=== PATIENT | male | born 1940 | race Caucasian/White ===

== ENCOUNTER 2016-06-09 14:55 | Emergency (ER) | payer OTHER ==
--- NOTE | 2016-06-09 16:24 | DIAGNOSTIC IMAGING REPORT ---
PROCEDURE: XR CERVICAL SPINE 2 OR 3 VIEW INDICATION: NECK TRAUMA/INJURY TECHNIQUE: Five views. COMPARISON: None. FINDINGS: Osseous structures and disc spaces are normal. No evidence of an acute process or fracture. IMPRESSION: 1. Negative cervical spine.
--- NOTE | 2016-06-09 16:28 | DIAGNOSTIC IMAGING REPORT ---
PROCEDURE: XR CHEST 1 VIEW INDICATION: CHEST PAIN TECHNIQUE: Portable AP view 04:06 p.m. COMPARISON: None. FINDINGS: There is cardiomegaly with pulmonary vascular congestion. No focal infiltrates. IMPRESSION: 1. CHF.
--- NOTE | 2016-06-09 18:28 | ED CLINICAL REPORT ---
Clinical Report - Physicians/Mid Levels [facility] [address] [place] [address] 06/09/2016 14:55 Patient: EVELYN BANKS Time Seen: 15:13; initial patient contact. Arrived- By ambulance. Historian- patient. HISTORY OF PRESENT ILLNESS Chief Complaint: CHEST PAIN. It is described as pressure and it is described as located in the central chest area. No radiation. At its maximum, severity described as moderate. When seen in the E.D., severity described as moderate. This started today and is still present. Onset during rest. The patient has had difficulty breathing and nausea. No vomiting or diaphoresis. Similar symptoms previously: None. Recent medical care: The patient was seen recently by a health care provider (Is in a rehab facility, under Tx for PNA with Levofloxacin. Had an elevated PCT over the weekend. Became hypotensive today and sent via EMS.). REVIEW OF SYSTEMS No fever, chills, calf pain or abdominal pain. He has had a cough, pedal edema and difficulty with urination, and experienced syncope. All systems otherwise negative, except as recorded above. PAST HISTORY nsomnia. Dyspnea. Hypertension. Ventricular Fibrillation. CHF. CAD. Hyperlipidemia. Collapse of vertebra. Prostate Cancer. Pneumonia. Obesity. Reflux. Diabetes Mellitus Type 2. Cirrhosis. COPD - Chronic Obstructive Pulmonary Disease. Medications: Dulcolax Oral 1 tablet, as needed. Bicalutamide Oral (Tablet 50 mg) 2 tablets. Alendronate Sodium Oral 35 mg. Diltiazem HCl ER Oral (Capsule Extended Release 12 Hour 120 mg) 240mg. ASA Oral 81 mg. Atorvastatin Calcium Oral 40 mg, daily. Tylenol Arthritis Pain Oral. Tylenol Oral 325 mg, daily as needed. Ventolin HFA Inhalation (Aerosol Solution 108 (90 Base) mcg/act), as needed. Vitamin D Oral (Capsule 1000 unit) 1 capsule. Losartan Potassium Oral. Losartan Potassium-HCTZ Oral (Tablet 50-12.5 mg) 1 tablet. Meloxicam Oral (Tablet 15 mg) 1 tablet. Metoprolol Tartrate Oral 50 mg, BID. Milk of Magnesia Oral (Suspension 1200 mg/15mL) 1 teaspoon, as needed. Nicotine Transdermal 21 mg/24hr (left side of his arm). OxyCODONE HCl Oral 5 mg, daily as needed. Pantoprazole Sodium Oral 40 mg, daily. Potassium Chloride Oral 20 meq, daily. Senna Oral (Tablet 8.6 mg) 1 tablet, as needed. Tamsulosin HCl Oral 0.4 mg, daily. TraZODone HCl Oral 50 mg, daily. Levaquin Oral 500 mg, daily (initiated 06/08). Allergies: No Known Drug Allergy. SOCIAL HISTORY Former smoker. ADDITIONAL NOTES The nursing notes have been reviewed with agreement regarding the chief complaint, PMH and patient medications and allergies. PHYSICAL EXAM Vital Signs: 06/09/2016 15:05 BP: 114/51. HR: 87. RR: 25. O2 saturation: 95%. Temp: 98.2 F. Pain level now: 8/10. Have been reviewed. Hypotensive. Heart rate normal. Tachypneic. Temperature normal. Oxygen saturation normal. Appearance: Alert. Oriented X3. Patient in mild distress. Eyes: Eyes normal inspection. ENT: Dry mucous membranes present. Neck: No JVD. CVS: Normal heart rate and rhythm. Heart sounds normal. Respiratory: No respiratory distress. Breath sounds normal. Abdomen: Soft and nontender. Bowel sounds normal. No organomegaly. No mass. Skin: Moderate pallor. Extremities: Bilateral 1+ edema of the lower extremities involving both lower legs. Neuro: Oriented X 3. No motor deficit. LABS, X-RAYS, AND EKG EKG: EKG time: (1507). Atrial flutter (ventricular rate 81 variable AV block.). Normal QRS complex. Normal axis. Normal ST and T waves, QT and QTc. Prior EKG unavailable. The study has been interpreted contemporaneously by me. The EKG appears to be a good tracing. I agree with and confirm the computer reading of the EKG. Interpretation time: 1508. Chest X-ray: (There is cardiomegaly with pulmonary vascular congestion. No focal infiltrates.). Views: AP. The X-rays were independently viewed by me, interpreted by the radiologist and discussed with the radiologist. Prior films were not available for comparison. Laboratory Tests: UA-Culture if indicated: (ANN-MARIE: 06/09/2016 16:30) ( MsgRcvd 06/09/2016 16:49) Final results Test Result Flag Units (Reference) URINE COLOR FRANCESCA URINE APPEARANCE CLEAR URINE GLUCOSE NEGATIVE (NEGATIVE) URINE BILIRUBIN ICTOTEST NEGATIVE (NEGATIVE) URINE KETONE NEGATIVE (NEGATIVE) URINE SPECIFIC GRAVITY >= 1.030 (1.010-1.030) URINE PH 5.0 (5.0-8.0) URINE PROTEIN TRACE (NEGATIVE) URINE UROBILINOGEN 0.2 EU/dL (0.2-1.0) URINE NITRITE NEGATIVE (NEGATIVE) URINE BLOOD NEGATIVE (NEGATIVE) URINE LEUK ESTERASE NEGATIVE (NEGATIVE) URINE RBC NONE SEEN rbc/hpf (0-1) URINE WBC RARE wbc/hpf (0-1) URINE EPITHELIAL CELLS RARE EPI/hpf (0-5) URINE BACTERIA NONE SEEN (NONE SEEN) URINE COMMENT CULT NOT INDICATED URINE CULTURES ARE SET-UP BASED ON THE FOLLOWING CRITERIA:POSITIVE NITRITEPOSITIVE LEUKOCYTE ESTERASEGREATER THAN 10 WHITE BLOOD CELLSMODERATE (2+) OR GREATER BACTERIA CBC w Diff: (ANN-MARIE: 06/09/2016 15:15) ( MsgRcvd 06/09/2016 16:36) Final results Test Result Flag Units (Reference) WHITE BLOOD COUNT 8.8 K/uL (4.5-11.5) RED BLOOD COUNT 2.91 L M/uL (4.50-5.90) HEMOGLOBIN 10.5 L gm/dL (13.5-17.5) HEMATOCRIT 31.0 L % (41.0-53.0) MEAN CELL VOLUME 107 H fL (80-100) MEAN CORPUSCULAR HGB 36 H pg (26-34) MEAN CORPUSCULAR HGB CONC 34 g/dL (31-37) RED CELL DISTRIBUTION WIDTH 17.3 H % (11.6-14.8) PLATELET COUNT 193 K/uL (150-400) POLY % 61 % (50-75) BAND % 16 H % (0-8) LYMPH 10 L % (25-40) MONO 13 % (3-14) EOSINOPHIL % 0 % (0-4) BASOPHIL % 0 % (0-2) METAMYELOCYTE % 0 % (0-1) MYELOCYTE 0 % (0-1) OTHER CELL TYPE 0 ANISOCYTOSIS 1+ MACROCYTOSIS 1+ [id number]: (ANN-MARIE: 06/09/2016 15:15) ( [facility] 06/09/2016 15:44) Final results Test Result Flag Units (Reference) D-DIMER QUANTITATIVE 2.98 H ug/mLFEU (0.27-0.52) The primary value of this quantitative assay relates toits negative predictive value (i.e. exclusion) of pulmonaryembolism/deep vein thrombosis/DIC.Elevated levels of d-dimer may also occur with:, age, cancer, inflammation, liver disease,post-op, infection, hematoma, coronary disease, peripheralarteriopathy, bleeding disorders and thrombolytic treatment.Results should be correlated with other clinical andradiological data.Testing Methodology: Latex Immunoassay BMP: (ANN-MARIE: 06/09/2016 17:00) ( [facility] 06/09/2016 17:24) Final results Test Result Flag Units (Reference) GLUCOSE 188 H mg/dL (70-110) BUN 57 H mg/dL (7-18) CREATININE 3.8 H mg/dL (0.6-1.3) Estimated GFR 16.68 mL/min Estimated GFR- 20.21 mL/min Note: Persistent reduction over 3 months in eGFR<60 mL/min/1.73 m2 defines CKD. Patients with eGFR values>=60 mL/min/1.73 m2 may also have CKD if evidence ofpersistent proteinuria. Additional information may be foundat www.[email or web address].org. SODIUM 127 L mmol/L (136-145) POTASSIUM 5.7 H mmol/L (3.5-5.1) CHLORIDE 98 mmol/L (98-107) CARBON DIOXIDE 17 L mmol/L (21-32) CALCIUM 8.1 L mg/dL (8.5-10.1) BNP: (ANN-MARIE: 06/09/2016 15:15) ( [facility] 06/09/2016 16:00) Final results Test Result Flag Units (Reference) B-TYPE NATRIURETIC PEPTIDE 192 H pg/ml (5-100) [id number]: (ANN-MARIE: 06/09/2016 15:15) ( MsgRcvd 06/09/2016 16:10) Final results Test Result Flag Units (Reference) LACTIC ACID SEPSIS PROTOCOL 2.8 H mmol/L (0.4-2.0) [id number]: (ANN-MARIE: 06/09/2016 15:15) ( MsgRcvd 06/09/2016 16:08) Final results Test Result Flag Units (Reference) PROCALCITONIN 3.8 H ng/mL (0-0.5) PCT Concentration: Interpretation : Risk/option for action PCT <=0.5 ng/mL : Systemic : Low risk forinfection(sepsis): progression to severeis not likely. : systemic infection.Local bacterial : CAUTION-PCT levelsinfection is : below 0.5 ng/mL do notpossible. : exclude an infection,because localizedinfections (withoutsystemic signs) may beassociated with suchlow levels. If PCT ismeasured very earlyafter a bacterialchallenge (usually <6hours), these valuesmay still be low. Inthis case PCT shouldbe re-assessed 6-24hours later. PCT >0.5 and : Systemic infection: Moderate risk for<= 2 ng/mL : (sepsis) is : progression to severepossible, but : systemic infection.other conditions : The patient should beare known to : closely monitoredelevate PCT. : both clinically andby re-assessing PCTwithin 6-24 hours. PCT > 2 ng/mL : Systemic infection: High risk for(sepsis) is likely: progression to severeunless other : systemic infection.causes are known. : PCT >= 10 ng/mL : Important systemic: High likelihood ofinflammatory : severe sepsis orresponse, almost : septic shock.exclusively due to:severe bacterial :sepsis or septic :shock. : CHEM 13 PANEL: (ANN-MARIE: 06/09/2016 15:15) ( MsgRcvd 06/09/2016 16:11) Final results Test Result Flag Units (Reference) GLUCOSE 239 H mg/dL (70-110) BUN 57 H mg/dL (7-18) CREATININE 3.9 H mg/dL (0.6-1.3) Estimated GFR 16.19 mL/min Estimated GFR- 19.62 mL/min Note: Persistent reduction over 3 months in eGFR<60 mL/min/1.73 m2 defines CKD. Patients with eGFR values>=60 mL/min/1.73 m2 may also have CKD if evidence ofpersistent proteinuria. Additional information may be foundat www.[email or web address].org. SODIUM 126 L mmol/L (136-145) POTASSIUM 6.3 H mmol/L (3.5-5.1) Slightly hemolyzed specimen CHLORIDE 96 L mmol/L (98-107) CARBON DIOXIDE 18 L mmol/L (21-32) CALCIUM 8.2 L mg/dL (8.5-10.1) TOTAL PROTEIN 5.2 L g/dL (6.4-8.2) ALBUMIN 2.1 L g/dL (3.3-5.0) BILIRUBIN, TOTAL 0.6 mg/dL (0.0-1.0) ALKALINE PHOSPHATASE 43 L U/L (46-116) AST (SGOT) 22 U/L (15-37) ALT (SGPT) 23 U/L (12-78) MAGNESIUM 1.8 mg/dL (1.8-2.4) CPK 69 U/L (24-260) TROPONIN I <0.05 ng/mL (0.00-1.5) TROPONIN REFERENCE RANGE:<0.1 NEGATIVE0.1-1.5 INDETERMINANT>1.5 POSITIVE . PROGRESS AND PROCEDURES Critical care performed (80 minutes). Time includes: direct patient care, patient reassessment, coordination of patient care, interpretation of data (laboratory data, pulse oximetry and chest xrays), review of patient's medical records, medical consultation and documentation of patient care. The patient required critical care due to the acute impairment of vital organ systems (cardiovascular, respiratory and renal) and a high probability of imminent deterioration. Multiple urgent interventions were required to prevent sudden deterioration. Discussed case with hospitalist, (call returned 18:22 Dr. Shah Hospitalist at [facility], will accept pt, direct admit to ICU.). Disposition: Benefits, risks and alternatives to transfer explained to patient. Transferred to [facility]. Condition: stable. CLINICAL IMPRESSION Bacterial pneumonia with hypoxemia and sepsis. Empiric antibiotics given in the ED. Sepsis with shock and acute renal failure. 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 (Electronically signed by Denzel West Dr. 06/09/2016 19:29)
--- NOTE | 2016-06-09 18:28 | ED ORDER SUMMARY ---
..... Patient: EVELYN BANKS OrderSheet [facility] VisitID: [id number] [place] [address] 75y, M Registration Date/Time: 06/09/2016 ORDER SHEET Weight: 104.3 kg (stated) Allergies: No Known Drug Allergy GENERAL ORDERS: Chest 1V Urgent (15:14 06/09/2016 Levy Barrios) (Ack 15:21 Huber) (15:56 EHassan R.N.) Blood Culture (Yes) (Levofloxacin) Urgent (15:14 06/09/2016 Levy Barrios) (Ack 15:21 Huber) (15:24 EHassan R.N.) UA-Culture if indicated Urgent (15:18 06/09/2016 Levy Barrios) (Ack 15:21 Huber) (16:45 MWinterer R.N.) Cardiac Panel Stat (15:18 06/09/2016 Levy Barrios) (Ack 15:21 Huber) (15:24 EHassan R.N.) BNP Urgent (15:18 06/09/2016 Levy Barrios) (Ack 15:21 Huber) (15:24 EHassan R.N.) D-Dimer Urgent (15:18 06/09/2016 Levy Barrios) (Ack 15:21 Huber) (15:24 EHassan R.N.) Lactic Acid for Sepsis Protocol Urgent (15:18 06/09/2016 Levy Barrios) (Ack 15:21 Huber) (15:24 EHassan R.N.) PCT (Procalcitonin) Urgent (15:18 06/09/2016 Levy Barrios) (Ack 15:21 Huber) (15:24 EHassan R.N.) Cervical Spine 2 or 3V Urgent (15:29 06/09/2016 Levy Barrios) (Ack 15:37 Huber) (15:56 EHassan R.N.) BMP Urgent (16:20 06/09/2016 Levy Barrios) (Ack 16:30 Huber) (17:04 EHassan R.N.) MEDICATION ORDERS: Levophed Drip IV : 0.1-0.5 mcg/kg/min (HIGH ALERT MEDICATION, NOW) (Titrate to a MAP of 70) (19:11 06/09/2016 Levy Barrios) (20:35 Katie R.N.) IV FLUIDS: IV NS : initial bolus none -, then 1000 mL/hr for X1 (NOW) (15:13 06/09/2016 Levy Barrios) (15:25 Katie R.N.) Zosyn IV 2.25 gm/50mL (NOW) (18:11 06/09/2016 Levy Barrios) (19:06 Katie R.N.) Vancomycin IV 1.5 gm/500 mL (NOW) (18:14 06/09/2016 Levy Barrios) (19:06 Katie R.N.) Morphine IV 4 mg (HIGH ALERT MEDICATION, NOW) (18:15 06/09/2016 Levy Barrios) (Hold 19:07 Katie R.N.) (19:55 Katie R.N.) ORDER SHEET NOTES: [Electronically signed by Denzel West Dr. (19:29 06/09/2016)] [Electronically signed by Susu Hawley R.N. (22:20 06/09/2016)] [Electronically locked/signed by Susu Hawley R.N. (22:20 06/09/2016)]
--- NOTE | 2016-06-09 18:28 | ED ORDER SUMMARY ---
..... Patient: EVELYN BANKS OrderSheet [facility] VisitID: [id number] [place] [address] 75y, M Registration Date/Time: 06/09/2016 ORDER SHEET Weight: 104.3 kg (stated) Allergies: No Known Drug Allergy GENERAL ORDERS: Chest 1V Urgent (15:14 06/09/2016 Levy Barrios) (Ack 15:21 Huber) (15:56 EHassan R.N.) Blood Culture (Yes) (Levofloxacin) Urgent (15:14 06/09/2016 Levy Barrios) (Ack 15:21 Huber) (15:24 EHassan R.N.) UA-Culture if indicated Urgent (15:18 06/09/2016 Levy Barrios) (Ack 15:21 Huber) (16:45 MWinterer R.N.) Cardiac Panel Stat (15:18 06/09/2016 Levy Barrios) (Ack 15:21 Huber) (15:24 EHassan R.N.) BNP Urgent (15:18 06/09/2016 Levy Barrios) (Ack 15:21 Huber) (15:24 EHassan R.N.) D-Dimer Urgent (15:18 06/09/2016 Levy Barrios) (Ack 15:21 Huber) (15:24 EHassan R.N.) Lactic Acid for Sepsis Protocol Urgent (15:18 06/09/2016 Levy Barrios) (Ack 15:21 Huber) (15:24 EHassan R.N.) PCT (Procalcitonin) Urgent (15:18 06/09/2016 Levy Barrios) (Ack 15:21 Huber) (15:24 EHassan R.N.) Cervical Spine 2 or 3V Urgent (15:29 06/09/2016 Levy Barrios) (Ack 15:37 Huber) (15:56 EHassan R.N.) BMP Urgent (16:20 06/09/2016 Levy Barrios) (Ack 16:30 Huber) (17:04 EHassan R.N.) MEDICATION ORDERS: Levophed Drip IV : 0.1-0.5 mcg/kg/min (HIGH ALERT MEDICATION, NOW) (Titrate to a MAP of 70) (19:11 06/09/2016 Levy Barrios) (20:35 Katie R.N.) IV FLUIDS: IV NS : initial bolus none -, then 1000 mL/hr for X1 (NOW) (15:13 06/09/2016 Levy Barrios) (15:25 Katie R.N.) Zosyn IV 2.25 gm/50mL (NOW) (18:11 06/09/2016 Levy Barrios) (19:06 Katie R.N.) Vancomycin IV 1.5 gm/500 mL (NOW) (18:14 06/09/2016 Levy Barrios) (19:06 Katie R.N.) Morphine IV 4 mg (HIGH ALERT MEDICATION, NOW) (18:15 06/09/2016 Levy Barrios) (Hold 19:07 Katie R.N.) (19:55 Katie R.N.) ORDER SHEET NOTES: [Electronically signed by Denzel West Dr. (19:29 06/09/2016)] [Electronically signed by Susu Hawley R.N. (22:20 06/09/2016)] [Electronically locked/signed by Susu Hawley R.N. (22:20 06/09/2016)]
--- NOTE | 2016-06-09 18:28 | ED NURSING NOTES ---
Clinical Report - Nurses [place] [address] [place] [address] 06/09/2016 14:55 Patient: VEELYN BANKS TRIAGE Triage time 1503 PM. Acuity: LEVEL 2. Chief Complaint: FEVER, CHILLS, FAINTING, WEAKNESS, DIARRHEA, NECK PAIN and BACK PAIN. Alert. No acute distress. SEPSIS SCREEN: Sepsis Screen. Negative (no infection suspected/documented). TYRONE COMA SCORE: [place] Coma Scale: 15- eyes open spontaneously (4); best verbal response- oriented x 4 (5); best motor response- obeys commands (6). --15:50 Susu Hawley R.N. 15:05 06/09/16. BP: 114/51. HR: 87. RR: 25. O2 saturation: 95% on nasal cannula at 4 liters/minute. Temp: 98.2 F. Pain level now: 11/06. --15:50 Susu Hawley R.N. Weight: 104.3 kg stated. Height/Length: 72 inches Per Patient. BMI: 31.2. --15:11 Susu Hawley R.N. Medications Levaquin Oral 500 mg, daily (initiated 06/08). --15:23 Susu Hawley R.N. TraZODone HCl Oral 50 mg, daily. --15:35 Susu Hawley R.N. Tamsulosin HCl Oral 0.4 mg, daily. --15:35 Susu Hawley R.N. Senna Oral (Tablet 8.6 mg) 1 tablet, as needed. --15:36 Susu Hawley R.N. Potassium Chloride Oral 20 meq, daily. --15:37 Susu Hawley R.N. Pantoprazole Sodium Oral 40 mg, daily. --15:38 Suus Hawley R.N. OxyCODONE HCl Oral 5 mg, daily as needed. --15:38 Susu Hawley R.N. Nicotine Transdermal 21 mg/24hr (left side of his arm). --15:38 Susu Hawley R.N. Milk of Magnesia Oral (Suspension 1200 mg/15mL) 1 teaspoon, as needed. --15:39 Susu Hawley R.N. Metoprolol Tartrate Oral 50 mg, BID. --15:39 Susu Hawley R.N. Meloxicam Oral (Tablet 15 mg) 1 tablet. --15:39 Susu Hawley R.N. Losartan Potassium Oral. Losartan Potassium-HCTZ Oral (Tablet 50-12.5 mg) 1 tablet. --15:40 Susu Hawley R.N. Vitamin D Oral (Capsule 1000 unit) 1 capsule. --15:41 Susu Hawley R.N. Ventolin HFA Inhalation (Aerosol Solution 108 (90 Base) mcg/act), as needed. --15:42 Susu Hawley R.N. Tylenol Arthritis Pain Oral. Tylenol Oral 325 mg, daily as needed. --15:42 Susu Hawley R.N. Atorvastatin Calcium Oral 40 mg, daily. --15:42 Susu Hawley R.N. ASA Oral 81 mg. --15:42 Susu Hawley R.N. Diltiazem HCl ER Oral (Capsule Extended Release 12 Hour 120 mg) 240mg. --15:43 Susu Hawley R.N. Alendronate Sodium Oral 35 mg. --15:43 Susu Hawley R.N. Bicalutamide Oral (Tablet 50 mg) 2 tablets. --15:44 Susu Hawley R.N. Dulcolax Oral 1 tablet, as needed. --15:44 Susu Hawley R.N. The following entry was struck and corrected by Susu Hawley R.N., 15:41 (06/09/16) Reason for correction - other(correction). <<STRICKEN ENTRY-- Levaquin Oral. --15:23 Susu Hawlye R.N. --END STRIKE>>. Medication/allergy information source: the patient. --15:50 Susu Hawley R.N. Allergies No Known Drug Allergy. --18:37 Susu Hawley R.N. History Arrived by EMS. Historian: patient. Primary physician (Dr. Hall). ( Pt arrived via EMS from skilled nursing, as per report pt had a syncope episode while getting to the commode. As per pt, has been feeling weak/SOB, diagnosed with pneumonia on levaquin. Denies CP. On a board -and C-gladis). This started today. He has had fever, weakness, a cough and difficulty breathing. Denies muscle aches. No skin rash. Treatment RIBBON TIER: None. EMS treatment RIBBON TIER verbally communicated. PAST MEDICAL HX: Immunizations: up-to-date. SOCIAL HX: Former smoker, end date 05/23/2016. Heavy alcohol use; consumes beer occasionally. No drug use. No infectious disease exposure. ABUSE ASSESSMENT: No report of abuse. SELF HARM ASSESSMENT: A self harm assessment was performed. The patient answered "no" to the question "Do you have thoughts of harming or killing yourself?" and "Have you recently had thoughts about harming or killing others?". FALL RISK ASSESSMENT: Fall risk assessment completed. Risk factors identified include patient age greater than 65 years and history of fall. --15:50 Susu Hawley R.N. PROBLEMS: Insomnia. Dyspnea. Hypertension. Ventricular Fibrillation. CHF. CAD. Hyperlipidemia. Collapse of vertebra. Prostate Cancer. Pneumonia. Obesity. Reflux. Diabetes Mellitus Type 2. Cirrhosis. COPD - Chronic Obstructive Pulmonary Disease. --15:50 Susu Hawley R.N. ADDITIONAL SURGERIES: Cyst removal of tail bone. Emergency Appendectomy. Fracture Repair. Skin cancer removal. Tonsillectomy & Adenoidectomy. --18:38 Susu Hawley R.N. Interventions ID band on patient. --15:50 Susu Hawley R.N. PHYSICAL ASSESSMENT To room via stretcher. GENERAL / NEURO / PSYCH: Alert. Oriented X 4. Appears in no acute distress. Appears in pain. HEENT: No facial asymmetry noted. Mucous membranes are pink. RESPIRATORY: Respirations not labored. Chest nontender. Decreased breath sounds in the bases bilaterally; decreased breath sounds in the right lung base anteriorly. Breath sounds within normal limits. CVS: Cardiac rhythm: atrial flutter. Pulses within normal limits. GI / : Abdomen soft and nontender and normal bowel sounds. SKIN: Skin intact. Skin is warm and dry. Poor skin turgor. Medium area of erythema to the abdomen and area of the genitalia. --15:52 Susu Hawley R.N. NURSING PROGRESS NOTES 15:06/09/2016 Site #1 accessed indwelling PIV line in the right antecubital space using a 18g needle. --15:25 Susu Hawley R.N. 15:06/09/2016 Site #2 accessed indwelling PIV line in the left forearm using a 20g needle; 1 attempt. --15:25 Susu Hawley R.N. 15:06/09/2016 Started bag #1 1000 mL IV Fluids IV NS (Saline); at 1000 mL/hr over 1 hour(s) via site #2 via dial-a-flow. Allergies verified and confirmed 5 rights. IV patency established. IV site checked: no pain, redness, or swelling. IV flushed thoroughly pre- and post-medication administration. --15:25 Susu Hawley R.N. The initial plan of care for this patient has been created This plan of care was discussed with the patient. Oxygen administered by nasal cannula at 2 liters. lead application architect, pulse oximeter, end tidal CO2 monitor and NIBP monitor placed on patient. Patient ID band checked for patient name, birthdate and medical record number: patient confirmed. Blood samples drawn from the right hand with Vacutainer 22g by nurse per protocol ; labeled in presence of the patient and sent to lab: rainbow set: blood culture (1st set). Patient gowned. Warming measures: blanket applied. Reassurance given. Two patient identifiers checked. Call light placed in reach. Side rails up x 2. Bed placed in lowest position. Brakes of bed on. --15:53 Susu Hawley R.N. 15:15 06/09/16. BP: 95/50 (regular adult cuff) taken on the left arm, via an automated monitor, while lying. HR: 75. RR: 22. O2 saturation: 97% on nasal cannula at 2 liters/minute. Pain level now: 8/10. --15:54 Susu Hawley R.N. late entry - 15:15 PM. Cardiac rhythm: atrial flutter. --15:54 Susu Hawley R.N. Patient transported to radiology by stretcher with O2. --15:54 Susu Hawley R.N. Cardiac rhythm: atrial flutter. lead application architect, pulse oximeter and NIBP monitor placed on patient. Reassurance given. Reassessment after fluids administered. ( Pt complaining of "his normal back pain" BP at 93/54 MD West aware, infusing bolus, pt understands that his BP is low at this moment unable to tx pain right now). RESPIRATORY: Denies difficulty breathing. CVS: Denies chest pain. Patient returned from radiology. (1614 PM). Call light placed in reach. Side rails up x 2. Bed placed in lowest position. Brakes of bed on. --16:16 Susu Hawley R.N. 16:14 06/09/16. BP: 93/54 (regular adult cuff) taken on the left arm, via an automated monitor, while lying. HR: 76 (irregular). RR: 22. O2 saturation: 95% on nasal cannula at 2 liters/minute. Pain level now: 810. --16:16 Susu Hawley R.N. 16:30 06/09/16. BP: 85/40 (regular adult cuff) taken on the left arm, via an automated monitor, while lying. HR: 68 (irregular). RR: 22. O2 saturation: 97%. Pain level now: 8/10. --16:41 Susu Hawley R.N. Cardiac rhythm: atrial flutter. Reassurance given. --16:41 Susu Hawley R.N. 14 fr rothman catheter placed. Reason for indwelling catheter: critical need to monitor intake and output. During procedure hand hygiene observed and sterile equipment and aseptic technique used. Return of abhi-colored clear urine; attached to urimeter and secured with tape. He tolerated procedure well. --16:49 Susu Hawley R.N. 17:30 06/09/16. BP: 103/53. HR: 91. RR: 20. O2 saturation: 96% on nasal cannula at 4 liters/minute. --17:31 Chloé Bazzi R.N. 17:31 06/09/2016 IV Fluids IV NS Discontinued: bag #1 infused. Total amount infused: 1000 mL. IV patency established. IV site checked: no pain, redness, or swelling. IV flushed thoroughly. --17:31 Chloé Bazzi R.N. 17:35 06/09/2016 Started bag #2 1000 mL IV Fluids IV NS (Saline); at 999 mL/hr over 1 hour(s) via site #2 via IV pump. Allergies verified and confirmed 5 rights. IV patency established. IV site checked: no pain, redness, or swelling. IV flushed thoroughly pre- and post-medication administration. --17:35 Chloé Bazzi R.N. lead application architect, pulse oximeter and NIBP monitor placed on patient. Patient hygiene performed. Patient is incontinent of stool. Stool described as loose. Changed patient linens. Reassurance given. Lights dimmed. Reassessment after oxygen and fluids administered. Overall patient status is the same- he states feels the same. CVS: Denies chest pain. --18:01 Susu Hawley R.N. 17:53 06/09/16. BP: 106/56 (regular adult cuff) taken on the left arm, via an automated monitor, while lying. HR: 87. RR: 18. O2 saturation: 97% on nasal cannula at 3 liters/minute. Temp: 97.6 F (oral). Pain level now: 8/10. --18:01 Susu Hawley R.N. ( BMP repeated K still at 5.7, MD West aware, IV fluids infusing BP up to 106/56, pt still complaining of back pain,). --18:11 Susu Hawley R.N. 19:00 06/09/2016 IV Fluids IV NS Discontinued: bag #2 infused upon discharge. Total amount infused: 1000 mL. IV patency established. IV site checked: no pain, redness, or swelling. IV flushed thoroughly. --20:34 Susu Hawley R.N. 19:06 06/09/2016 Started 2.25 gm of Zosyn (Piperacillin Sod-Tazobactam So) IVPB in bag #1 50 mL; at 50 mL/hr over 30 minute(s) via site #1 via IV pump. Allergies verified and confirmed 5 rights. IV patency established. IV site checked: no pain, redness, or swelling. IV flushed thoroughly pre- and post-medication administration. Completed per protocol. --19:06 Susu Hawley R.N. 19:06 06/09/2016 Started 1.5 gm of Vancomycin IVPB in bag #1 500 mL; at 500 mL/hr over 2 hour(s) via site #2 via IV pump. Allergies verified and confirmed 5 rights. IV patency established. IV site checked: no pain, redness, or swelling. IV flushed thoroughly pre- and post-medication administration. --19:06 Susu Hawley R.N. 19:09 06/09/16. BP: 79/48. HR: 70. RR: 16. O2 saturation: 97% on nasal cannula at 2 liters/minute. Pain level now: 810. --19:15 Susu Hawley R.N. Oxygen administered by nasal cannula at 3 liters. lead application architect, pulse oximeter and NIBP monitor placed on patient. Patient hygiene performed. Patient is incontinent of stool. Stool described as loose. Reassurance given. Lights dimmed. Reassessment after oxygen and fluids administered. He has had no adverse reaction. Overall patient status is the same- he states feels the same. ( BP at 74/49 MD West aware, Antibiotics initiated as ordered, Levophed ordered, pt asymtomatic). RESPIRATORY: Denies difficulty breathing. CVS: Denies chest pain. Cardiac rhythm: atrial flutter. --19:15 Susu Hawley R.N. 19:39 06/09/2016 Site #3 started via IV in the right forearm with an 20g angiocath; one attempt. Saline lock flushed. --19:55 Susu Hawley R.N. 19:40 06/09/2016 Started 4 mcg of Levophed (Norepinephrine Bitartrate) Drip IV in bag #1 250 mL; at 4 mcg/kg/min over 5 hour(s) via site #1 via IV pump. Allergies verified and confirmed 5 rights. IV patency established. IV site checked: no pain, redness, or swelling. IV flushed thoroughly pre- and post-medication administration. Completed per protocol. --20:36 Susu Hawley R.N. 19:45 06/09/2016 Zosyn IVPB Discontinued: bag #1 completed upon discharge. Total amount infused: 50 mL. IV patency established. IV site checked: no pain, redness, or swelling. IV flushed thoroughly. --20:34 Susu Hawley R.N. 19:50 06/09/2016 Morphine IVP 4 mg given over 2 minute(s) via site #3. --19:55 Susu Hawley R.N. 20:00 06/09/2016 Morphine IVP Response: no adverse reaction symptoms have improved the patient feels the same. --20:36 Susu Hawley R.N. late entry - 19:15. Cardiac rhythm: atrial flutter. lead application architect, pulse oximeter and NIBP monitor placed on patient. Reassurance given. Reassessment after oxygen and fluids administered. He is calm. ( Fluids infusing, pt awaiting on tranport, will initiate Levo once received from pharmacy). Two patient identifiers checked. Call light placed in reach. --20:39 Susu Hawley R.N. 19:15 06/09/16. BP: 85/45. HR: 72. RR: 20. O2 saturation: 97% on nasal cannula at 3 liters/minute. Pain level now: 11/06. --20:39 Susu Hawley R.N. late entry - 19:30 PM. Cardiac rhythm: atrial flutter. Oxygen administered by nasal cannula at 3 liters. Monitoring of patient in place. Reassurance given. --20:40 Susu Hawley R.N. 19:30 06/09/16. BP: 99/54. HR: 72. RR: 20 (regular and unlabored). O2 saturation: 96% on nasal cannula at 3 liters/minute. Temp: 97.6 F (oral). Pain level now: 11/06. --20:40 Susu Hawley R.N. late entry - 19:45 PM. Cardiac rhythm: atrial flutter. The patient is calm. Overall patient status is improved- he states feels the same. ( Ambulance at bedside, levo initiated, pt tolerating well, morphine given and ok by Dr. West). RESPIRATORY: No respiratory distress present. CVS: Denies chest pain. SKIN: Skin is warm and dry. Skin color within normal limits. --20:43 Susu Hawley R.N. 19:45 06/09/16. BP: 104/54. HR: 72. RR: 18. O2 saturation: 97% on nasal cannula at 3 liters/minute. Pain level now: 11/06. --20:43 Susu Hawley R.N. DISPOSITION / DISCHARGE 20:00 06/09/2016 Site #1 reassessed; patent, infusing well and no signs of infection or infiltration. Good blood return present. --20:29 Susu Hawley R.N. 20:00 06/09/2016 Site #2 reassessed; patent, infusing well and no signs of infection or infiltration. Good blood return present. --20:29 Susu Hawley R.N. 20:00 06/09/2016 Site #3 reassessed; patent, infusing well and no signs of infection or infiltration. Good blood return present. Converted to saline lock. Flushed with 10 mL saline. --20:30 Susu Hawley R.N. Cardiac rhythm: atrial flutter. Departure time: 2003 PM. Condition at departure: improved, stable and critical. The goals identified in the patient's plan of care were met. Transferred to [facility] (1999 PM). Transported via ambulance by nurse with monitor, IV and O2. Report was given to a nurse via a phone call. Report included patient's care, treatment, medications, reviewed medication reconcilliation, and condition (including any recent changes or anticipated changes). All questions were answered. Report was acknowledged and care was transferred. (ESTER Mujica). ( Pt transferred via ambulance to [facility], report given to ESTER Dominguez (transport), pt initiated on Levophed to maintain MAP > 65-70, VSS, IV sites intact, Vanco infusing as ordered, NS and Levo.). Patient's personal items include: shirt, pants, socks, shoes, glasses and cell phone, phone lead refiner; items were placed in belongings bag and transported with the patient. TYRONE COMA SCORE: [place] Coma Scale: 15- eyes open spontaneously (4); best verbal response- oriented x 4 (5); best motor response- obeys commands (6). --20:33 Susu Hawley R.N. 20:00 06/09/16. BP: 114/56. HR: 74. RR: 20. O2 saturation: 97% on nasal cannula at 3 liters/minute. Temp: 97.6 F (oral). Pain level now: 11/06. --20:33 Susu Hawley R.N. Locked/Released at 06/09/2016 22:20 by Susu Hawley R.N.
--- NOTE | 2016-06-09 22:20 | ED MAR SUMMARY ---
..... Medication Administration Record [facility] [address] [place] [address] Patient: EVELYN BANKS Visit ID: [id number] 75y, M Weight: 104.3 kg Height/Length: 72 in BMI: 31.2 ALLERGIES: No Known Drug Allergy Start 15:25 06/09/2016 Susu Hawley R.N., Stop 17:31 06/09/2016 Chloé Bazzi R.N. Medication Administered: IV NS (SALINE), Dose: IV Fluids over 1 hour(s), Rate: 1000 mL/hr, Dispensed: 1000 mL bag, Site: #2 left forearm. Medication Ordered: IV NS : initial bolus none -, then 1000 mL/hr for X1 (NOW). Start 17:35 06/09/2016 Chloé Bazzi R.N., Stop 19:00 06/09/2016 Susu Hawley R.N. Medication Administered: IV NS (SALINE), Dose: IV Fluids over 1 hour(s), Rate: 999 mL/hr, Dispensed: 1000 mL bag, Site: #2 left forearm. Medication Ordered: IV NS : initial bolus none -, then 1000 mL/hr for X1 (NOW). Start 19:06 06/09/2016 Susu Hawley R.N., Stop 19:45 06/09/2016 Susu Hawley R.N. Medication Administered: ZOSYN [IVPB] (PIPERACILLIN SOD-TAZOBACTAM SO), Dose: 2.25 gm IVPB over 30 minute(s), Rate: 50 mL/hr, Dispensed: 50 mL bag, Site: #1 right AC. Medication Ordered: Zosyn IV 2.25 gm/50mL (NOW). Start 19:06 06/09/2016 Susu Hawley R.N. Medication Administered: VANCOMYCIN [IVPB], Dose: 1.5 gm IVPB over 2 hour(s), Rate: 500 mL/hr, Dispensed: 500 mL bag, Site: #2 left forearm. Medication Ordered: Vancomycin IV 1.5 gm/500 mL (NOW). Start 19:40 06/09/2016 Susu Hawley R.N. Medication Administered: LEVOPHED [IV DRIP] (NOREPINEPHRINE BITARTRATE), Dose: 4 mcg Drip IV over 5 hour(s), Rate: 4 mcg/kg/min, Dispensed: 250 mL bag, Site: #1 right AC. Medication Ordered: Levophed Drip IV : 0.1-0.5 mcg/kg/min (HIGH ALERT MEDICATION, NOW) (Titrate to a MAP of 70). Given 19:50 06/09/2016 Susu Hawley, REdwardN. Medication Administered: MORPHINE [IVP], Dose: 4 mg IVP over 2 minute(s), Site: #3 right forearm. Medication Ordered: Morphine IV 4 mg (HIGH ALERT MEDICATION, NOW).
--- NOTE | 2016-06-09 22:20 | ED MED RECONCILIATION SUMMARY ---
Patient: EVELYN BANKS Medication Reconciliation Report [facility] VisitID: [id number] [place] [address] 75y, M Registration Date/Time: 06/09/2016 Weight: 104.3 kg Height/Length: 72 in. BMI: 31.2 ALLERGIES: No Known Drug Allergy The patient's Home Medications are listed below: THE FOLLOWING MEDICATIONS NEED TO BE RECONCILED: Alendronate Sodium Oral 35 mg ASA Oral 81 mg Atorvastatin Calcium Oral 40 mg, daily Bicalutamide Oral (50 mg) 2 tablets Diltiazem HCl ER Oral (120 mg) 240mg Dulcolax Oral 1 tablet Levaquin Oral 500 mg, daily, initiated 06/08 Losartan Potassium Oral Losartan Potassium-HCTZ Oral (50-12.5 mg) 1 tablet Meloxicam Oral (15 mg) 1 tablet Metoprolol Tartrate Oral 50 mg, BID Milk of Magnesia Oral (1200 mg/15mL) 1 teaspoon Nicotine Transdermal 21 mg/24hr, left side of his arm OxyCODONE HCl Oral 5 mg, daily Pantoprazole Sodium Oral 40 mg, daily Potassium Chloride Oral 20 meq, daily Senna Oral (8.6 mg) 1 tablet Tamsulosin HCl Oral 0.4 mg, daily TraZODone HCl Oral 50 mg, daily Tylenol Arthritis Pain Oral Tylenol Oral 325 mg, daily Ventolin HFA Inhalation (108 (90 Base) mcg/act) Vitamin D Oral (1000 unit) 1 capsule The source(s) of the original Home Medication information: patient The following Medications were given to the patient in the Emergency Department: IV NS IV Fluids bolus 0, then 1000 mL/hr, administered: 06/09/2016 3:25:00 PM IV NS IV Fluids bolus 0, then 999 mL/hr, administered: 06/09/2016 5:35:00 PM Zosyn [IVPB] IVPB bolus 0, then 2.25 gm 50 mL/hr, administered: 06/09/2016 7:06:00 PM Vancomycin [IVPB] IVPB bolus 0, then 1.5 gm 500 mL/hr, administered: 06/09/2016 7:06:00 PM Morphine [IVP] IVP 4 mg, administered: 06/09/2016 7:50:00 PM Levophed [IV DRIP] Drip IV bolus 0, then 4 mcg 4 mcg/kg/min, administered: 06/09/2016 7:40:00 PM The following Medications were prescribed to the patient: None.
--- NOTE | 2016-06-09 22:20 | ED DISCHARGE INSTRUCTIONS ---
Patient: EVELYN BANKS General Instructions [facility] VisitID: [id number] [address] [place] [address] 75y, M Registration Date/Time: 06/09/2016 Bacterial pneumonia with hypoxemia and sepsis. Empiric antibiotics given in the ED. Sepsis with shock and acute renal failure. 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 (Electronically signed by Denzel West Dr. 06/09/2016 19:29)
--- NOTE | 2016-06-09 22:20 | ED MED RECONCILIATION SUMMARY ---
Patient: EVELYN BANKS Medication Reconciliation Report [facility] VisitID: [id number] [place] [address] 75y, M Registration Date/Time: 06/09/2016 Weight: 104.3 kg Height/Length: 72 in. BMI: 31.2 ALLERGIES: No Known Drug Allergy The patient's Home Medications are listed below: THE FOLLOWING MEDICATIONS NEED TO BE RECONCILED: Alendronate Sodium Oral 35 mg ASA Oral 81 mg Atorvastatin Calcium Oral 40 mg, daily Bicalutamide Oral (50 mg) 2 tablets Diltiazem HCl ER Oral (120 mg) 240mg Dulcolax Oral 1 tablet Levaquin Oral 500 mg, daily, initiated 06/08 Losartan Potassium Oral Losartan Potassium-HCTZ Oral (50-12.5 mg) 1 tablet Meloxicam Oral (15 mg) 1 tablet Metoprolol Tartrate Oral 50 mg, BID Milk of Magnesia Oral (1200 mg/15mL) 1 teaspoon Nicotine Transdermal 21 mg/24hr, left side of his arm OxyCODONE HCl Oral 5 mg, daily Pantoprazole Sodium Oral 40 mg, daily Potassium Chloride Oral 20 meq, daily Senna Oral (8.6 mg) 1 tablet Tamsulosin HCl Oral 0.4 mg, daily TraZODone HCl Oral 50 mg, daily Tylenol Arthritis Pain Oral Tylenol Oral 325 mg, daily Ventolin HFA Inhalation (108 (90 Base) mcg/act) Vitamin D Oral (1000 unit) 1 capsule The source(s) of the original Home Medication information: patient The following Medications were given to the patient in the Emergency Department: IV NS IV Fluids bolus 0, then 1000 mL/hr, administered: 06/09/2016 3:25:00 PM IV NS IV Fluids bolus 0, then 999 mL/hr, administered: 06/09/2016 5:35:00 PM Zosyn [IVPB] IVPB bolus 0, then 2.25 gm 50 mL/hr, administered: 06/09/2016 7:06:00 PM Vancomycin [IVPB] IVPB bolus 0, then 1.5 gm 500 mL/hr, administered: 06/09/2016 7:06:00 PM Morphine [IVP] IVP 4 mg, administered: 06/09/2016 7:50:00 PM Levophed [IV DRIP] Drip IV bolus 0, then 4 mcg 4 mcg/kg/min, administered: 06/09/2016 7:40:00 PM The following Medications were prescribed to the patient: None.
--- NOTE | 2016-06-09 22:20 | ED MAR SUMMARY ---
..... Medication Administration Record [facility] [address] [place] [place] [address] Patient: EVELYN BANKS Visit ID: [id number] 75y, M Weight: 104.3 kg Height/Length: 72 in BMI: 31.2 ALLERGIES: No Known Drug Allergy Start 15:25 06/09/2016 Susu Hawley R.N., Stop 17:31 06/09/2016 Chloé Bazzi R.N. Medication Administered: IV NS (SALINE), Dose: IV Fluids over 1 hour(s), Rate: 1000 mL/hr, Dispensed: 1000 mL bag, Site: #2 left forearm. Medication Ordered: IV NS : initial bolus none -, then 1000 mL/hr for X1 (NOW). Start 17:35 06/09/2016 Chloé Bazzi R.N., Stop 19:00 06/09/2016 Susu Hawley R.N. Medication Administered: IV NS (SALINE), Dose: IV Fluids over 1 hour(s), Rate: 999 mL/hr, Dispensed: 1000 mL bag, Site: #2 left forearm. Medication Ordered: IV NS : initial bolus none -, then 1000 mL/hr for X1 (NOW). Start 19:06 06/09/2016 Susu Hawley R.N., Stop 19:45 06/09/2016 Susu Hawley R.N. Medication Administered: ZOSYN [IVPB] (PIPERACILLIN SOD-TAZOBACTAM SO), Dose: 2.25 gm IVPB over 30 minute(s), Rate: 50 mL/hr, Dispensed: 50 mL bag, Site: #1 right AC. Medication Ordered: Zosyn IV 2.25 gm/50mL (NOW). Start 19:06 06/09/2016 Susu Hawley R.N. Medication Administered: VANCOMYCIN [IVPB], Dose: 1.5 gm IVPB over 2 hour(s), Rate: 500 mL/hr, Dispensed: 500 mL bag, Site: #2 left forearm. Medication Ordered: Vancomycin IV 1.5 gm/500 mL (NOW). Start 19:40 06/09/2016 Susu Hawley R.N. Medication Administered: LEVOPHED [IV DRIP] (NOREPINEPHRINE BITARTRATE), Dose: 4 mcg Drip IV over 5 hour(s), Rate: 4 mcg/kg/min, Dispensed: 250 mL bag, Site: #1 right AC. Medication Ordered: Levophed Drip IV : 0.1-0.5 mcg/kg/min (HIGH ALERT MEDICATION, NOW) (Titrate to a MAP of 70). Given 19:50 06/09/2016 Susu Hawley, REdwardN. Medication Administered: MORPHINE [IVP], Dose: 4 mg IVP over 2 minute(s), Site: #3 right forearm. Medication Ordered: Morphine IV 4 mg (HIGH ALERT MEDICATION, NOW).
--- NOTE | 2016-06-09 22:20 | ED DISCHARGE INSTRUCTIONS ---
Patient: EVELYN BANKS General Instructions [facility] VisitID: [id number] [place] [address] 75y, M Registration Date/Time: 06/09/2016 Bacterial pneumonia with hypoxemia and sepsis. Empiric antibiotics given in the ED. Sepsis with shock and acute renal failure. 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 (Electronically signed by Denzel West Dr. 06/09/2016 19:29)
== END 2016-06-09 20:05 | disposition short-term general hospital (02) ==
LOC: ED SRH 14:55
DX: A41.9 Sepsis, unspecified organism (principal); R65.21 Severe sepsis with septic shock; J15.9 Unspecified bacterial pneumonia; N17.9 Acute kidney failure, unspecified; I12.0 Hypertensive chronic kidney disease with stage 5 chronic kidney disease or end stage renal disease; N18.6 End stage renal disease; R09.02 Hypoxemia; I49.01 Ventricular fibrillation; J44.9 Chronic obstructive pulmonary disease, unspecified